=== PATIENT | male | born 1960 | race Caucasian/White ===

== ENCOUNTER 2023-07-14 13:49 | Emergency (ER) | payer OTHER ==
[~2023-07-14] VITALS: Ht 180.3 cm; Wt 158.8 kg
[2023-07-14 14:00] VITALS: BP_SYST 155; PULSE 88; RESP 20; TEMP 98.3; O2SAT 96
[2023-07-14] MEDS ORDERED: ASPIRIN 81 MG TAB.CHEW PO ONE (15:00)
[2023-07-14] MEDS ORDERED: IPRATROPIUM/ALBUTEROL SULFATE 3 ML AMPUL.NEB (DUONEB) ONE (15:22)
[2023-07-14 15:35] LABS: BASOPHILS % (AUTO) 0.9 % (0.0-2.0); EOSINOPHILS # (AUTO) 0.3 K/uL (0.0-0.4); EOSINOPHILS % (AUTO) 2.2 % (0.0-4.0); HEMATOCRIT 45.6 % (36-54); HEMOGLOBIN 15.3 g/dL (14.0-18.0); LYMPHOCYTES # (AUTO) 1.9 K/uL (1.0-5.5); MEAN CORPUSCULAR HEMOGLOBIN 31 pg (27-31); MEAN CORPUSCULAR HGB CONC 34 % (32-36); MEAN CORPUSCULAR VOLUME 92 fL (79.0-98.0); MONOCYTES # (AUTO) 1.1 K/uL (0.0-1.0); MONOCYTES % (AUTO) 8.6 % (1.7-9.3); NEUTROPHILS # (AUTO) 9.1 K/uL (1.8-7.7); NEUTROPHILS % (AUTO) 73.3 % (40.0-70.0); PLATELET COUNT (AUTO) 326 K/uL (130-430); RED BLOOD CELL COUNT(AUTO) 4.95 MIL/uL (4.2-6.2); RED CELL DISTRIBUTION WIDTH 15.2 % (9.0-15.0); WHITE BLOOD COUNT (AUTO) 12.4 K/uL (4.8-10.8)
[2023-07-14 15:36] LABS: ANION GAP 8 (5-15); CALCIUM 9.6 mg/dL (8.4-11.0); CARBON DIOXIDE 30 mmol/L (23-29); CHLORIDE 103 mmol/L (98-107); GFR AFRICAN AMERICAN 98 mL/min (>90); GLUCOSE 96 mg/dL (74-106); POTASSIUM 3.8 mmol/L (3.5-5.1); SODIUM SERUM 141 mmol/L (136-145); UREA NITROGEN, BLOOD 21 mg/dL (8-21)
[2023-07-14 15:37] LABS: GFR NON AFRICAN-AMERICAN 81 mL/min (>90)
[2023-07-14 16:02] LABS: BASOPHILS # (AUTO) 0.1 K/uL (0.0-0.2)
[2023-07-14 18:07] LABS: INFLUENZA TYPE A Negative (NEGATIVE); INFLUENZA TYPE B NEGATIVE (NEGATIVE)
[2023-07-14 20:30] VITALS: BP_SYST 153; PULSE 91; RESP 20; TEMP 98.6; O2SAT 90
== END 2023-07-14 20:30 | disposition home or self-care (01) ==
LOC: SED 13:49
DX: R06.02 Shortness of breath (principal); I51.7 Cardiomegaly; E11.9 Type 2 diabetes mellitus without complications; I10 Essential (primary) hypertension; Z68.42 Body mass index [BMI] 45.0-49.9, adult; Z79.899 Other long term (current) drug therapy; Z20.822 Contact with and (suspected) exposure to COVID-19
CPT/HCPCS: 36415; 71045; 80048; 83880; 84484; 85025; 85379; 93005; 94640; 99285

== ENCOUNTER 2023-07-30 23:02 | Inpatient (IN) | payer OTHER ==
[~2023-07-30] VITALS: Ht 165.1 cm; Wt 168.8 kg
[2023-07-30 23:10] VITALS: BP_SYST 144; PULSE 141; RESP 22; TEMP 97.8; O2SAT 90
[2023-07-30] MEDS ORDERED: IPRATROPIUM/ALBUTEROL SULFATE 3 ML AMPUL.NEB (DUONEB) ONE (23:33)
[2023-07-30] MEDS: IPRATROPIUM/ALBUTEROL SULFATE 3 ML AMPUL.NEB (DUONEB) INH ONE (23:57)
[2023-07-31] VITALS (13 sets, daily range): BP systolic 126–147; PULSE 72–88; RESP 14–26; TEMP 97.6–98.2; O2SAT 91–99
[2023-07-31 00:58] LABS: BASOPHILS # (AUTO) 0.1 K/uL (0.0-0.2); BASOPHILS % (AUTO) 0.7 % (0.0-2.0); EOSINOPHILS # (AUTO) 0.2 K/uL (0.0-0.4); EOSINOPHILS % (AUTO) 1.6 % (0.0-4.0); HEMOGLOBIN 15.1 g/dL (14.0-18.0); LYMPHOCYTES # (AUTO) 1.4 K/uL (1.0-5.5); LYMPHOCYTES % (AUTO) 11.8 % (20.5-51.5); MEAN CORPUSCULAR HEMOGLOBIN 30 pg (27-31); MEAN CORPUSCULAR HGB CONC 33 % (32-36); MEAN CORPUSCULAR VOLUME 92 fL (79.0-98.0); MONOCYTES # (AUTO) 0.9 K/uL (0.0-1.0); MONOCYTES % (AUTO) 8.2 % (1.7-9.3); NEUTROPHILS % (AUTO) 77.7 % (40.0-70.0); PLATELET COUNT (AUTO) 293 K/uL (130-430); RED CELL DISTRIBUTION WIDTH 15.1 % (9.0-15.0); WHITE BLOOD COUNT (AUTO) 11.5 K/uL (4.8-10.8)
[2023-07-31] MEDS ORDERED: SYN50 PO (01:00)
[2023-07-31] MEDS ORDERED: ATEN-168 PO (01:00)
[2023-07-31] MEDS ORDERED: CLON0.5T4 PO (01:00)
[2023-07-31] MEDS ORDERED: CETRIZINE PO (01:00)
[2023-07-31] MEDS ORDERED: METF-518 PO (01:00)
[2023-07-31] MEDS: FUROSEMIDE 40 MG/4 ML VIAL IVP ONE ×2 (01:00→13:46)
[2023-07-31] MEDS ORDERED: NOR10 PO (01:00)
[2023-07-31] MEDS ORDERED: SIMV-343 PO (01:00)
[2023-07-31] MEDS ORDERED: HYDR-4038 PO (01:00)
[2023-07-31] MEDS ORDERED: GLIP10TA21 PO (01:00)
[2023-07-31] MEDS ORDERED: POTA8TAB66 PO (01:00)
[2023-07-31] MEDS ORDERED: FLUT16SP16 NS (01:00)
[2023-07-31] MEDS ORDERED: SEMA0.258 SQ (01:00)
[2023-07-31] MEDS ORDERED: ASPI-1393 PO (01:00)
[2023-07-31] MEDS ORDERED: INSU100V11 SQ (01:00)
[2023-07-31] MEDS ORDERED: DAPA5TAB PO (01:00)
[2023-07-31] MEDS ORDERED: FURO-149 PO (01:00)
[2023-07-31] MEDS ORDERED: LOSA-413 PO (01:00)
[2023-07-31 01:04] LABS: ANION GAP 7 (5-15); CARBON DIOXIDE 30 mmol/L (23-29); CHLORIDE 102 mmol/L (98-107); CREATININE 1.02 mg/dL (0.55-1.30); GFR AFRICAN AMERICAN 96 mL/min (>90); GLUCOSE 267 mg/dL (74-106); POTASSIUM 3.7 mmol/L (3.5-5.1); SODIUM SERUM 139 mmol/L (136-145); UREA NITROGEN, BLOOD 21 mg/dL (8-21)
[2023-07-31 01:11] LABS: GFR NON AFRICAN-AMERICAN 79 mL/min (>90)
[2023-07-31 01:12] LABS: ALANINE AMINOTRANSFERASE 19 U/L (12-78); ALBUMIN 3.1 g/dL (3.4-4.8); ASPARTATE AMINOTRANSFERASE 12 U/L (10-37); BILIRUBIN,DIRECT 0.2 mg/dL (0.0-0.3); CREATINE KINASE, TOTAL 62 U/L (39-308); TOTAL BILIRUBIN 0.9 mg/dL (0.0-1.0); TOTAL PROTEIN, SERUM 7.7 g/dL (6.4-8.3)
[2023-07-31] MEDS: METOPROLOL TARTRATE 5 MG/5 ML VIAL IVP ONE (01:58)
[2023-07-31] MEDS: METOPROLOL TARTRATE 25 MG TABLET PO ONE ×2 (01:59→13:47)
[2023-07-31] MEDS ORDERED: GLIP10TA11 PO (07:16)
[2023-07-31] MEDS ORDERED: NALOXONE HCL 0.4 MG/ML AMP (NARCAN) IVP PRN (10:00)
[2023-07-31] MEDS ORDERED: HYDROcodone/ACETAMIN 10-325 MG TAB PO PRN (10:00)
[2023-07-31] MEDS ORDERED: HYDROcodone/ACETAMIN 5-325 MG TAB (NORCO/ VICODIN) PO PRN (10:00)
[2023-07-31] MEDS ORDERED: IPRATROPIUM BROM 0.5 MG/2.5 ML VIAL.NEB (ATROVENT) INH SCH (10:00)
[2023-07-31] MEDS ORDERED: DEXTROSE 50% JECT 50 ML DISP.SYRIN IVP PRN (10:00)
[2023-07-31] MEDS ORDERED: GLUCOSE (DEXTROSE) ORAL GEL -Adults PO PRN (10:00)
[2023-07-31] MEDS ORDERED: ONDANSETRON HCL 4 MG/2 ML VIAL IVP PRN (10:00)
[2023-07-31] MEDS ORDERED: ACETAMINOPHEN 325 MG TABLET PO PRN ×2 (10:00→10:15)
[2023-07-31] MEDS ORDERED: MORPHINE 2 MG/ML INJ. SYRINGE IVP PRN (10:00)
[2023-07-31] MEDS ORDERED: COMMUNICATION ORDER XX PRN (10:15)
[2023-07-31 11:03] LABS: BASOPHILS % (AUTO) 0.5 % (0.0-2.0); EOSINOPHILS # (AUTO) 0.3 K/uL (0.0-0.4); EOSINOPHILS % (AUTO) 2.7 % (0.0-4.0); HEMATOCRIT 46.8 % (36-54); HEMOGLOBIN 15.3 g/dL (14.0-18.0); LYMPHOCYTES # (AUTO) 1.4 K/uL (1.0-5.5); LYMPHOCYTES % (AUTO) 14.4 % (20.5-51.5); MEAN CORPUSCULAR HEMOGLOBIN 30 pg (27-31); MEAN CORPUSCULAR HGB CONC 33 % (32-36); MEAN CORPUSCULAR VOLUME 93 fL (79.0-98.0); MONOCYTES % (AUTO) 9.8 % (1.7-9.3); NEUTROPHILS # (AUTO) 7.1 K/uL (1.8-7.7); NEUTROPHILS % (AUTO) 72.6 % (40.0-70.0); PLATELET COUNT (AUTO) 267 K/uL (130-430); RED BLOOD CELL COUNT(AUTO) 5.03 MIL/uL (4.2-6.2); RED CELL DISTRIBUTION WIDTH 15.4 % (9.0-15.0); WHITE BLOOD COUNT (AUTO) 9.8 K/uL (4.8-10.8)
[2023-07-31 11:21] LABS: ALANINE AMINOTRANSFERASE 20 U/L (12-78); ALBUMIN 3.1 g/dL (3.4-4.8); ASPARTATE AMINOTRANSFERASE 10 U/L (10-37); CALCIUM 8.6 mg/dL (8.4-11.0); CARBON DIOXIDE 36 mmol/L (23-29); CHLORIDE 104 mmol/L (98-107); CREATININE 0.97 mg/dL (0.55-1.30); GFR AFRICAN AMERICAN 102 mL/min (>90); GLUCOSE 142 mg/dL (74-106); POTASSIUM 3.4 mmol/L (3.5-5.1); SODIUM SERUM 141 mmol/L (136-145); TOTAL BILIRUBIN 1.4 mg/dL (0.0-1.0); TOTAL PROTEIN, SERUM 7.8 g/dL (6.4-8.3); UREA NITROGEN, BLOOD 18 mg/dL (8-21)
[2023-07-31 11:23] LABS: ANION GAP < 3 (5-15); GFR NON AFRICAN-AMERICAN 84 mL/min (>90)
[2023-07-31 11:24] LABS: HEMOGLOBIN A1C 8.01 % (<5.7)
[2023-07-31] MEDS: IPRATROPIUM BROM 0.5 MG/2.5 ML VIAL.NEB (ATROVENT) INH SCH (12:00)
[2023-07-31] MEDS: LEVOTHYROXINE SODIUM 0.05 MG TABLET PO ONE (13:47)
[2023-07-31] MEDS: amLODIPine BESYLATE 10 MG TABLET PO ONE (13:47)
[2023-07-31] MEDS: ASPIRIN 81 MG TABLET(ECOTRIN) PO ONE (13:48)
[2023-07-31] MEDS: LOSARTAN POTASSIUM 50 MG TABLET (COZAAR) PO ONE (13:48)
[2023-07-31] MEDS: EMPAGLIFLOZIN 10 MG TABLET PO ONE (15:50)
[2023-07-31] MEDS ORDERED: POTA-195 PO (15:51)
[2023-07-31] MEDS: INSULIN REGULAR, HUMAN 100 UNITS/ML, 3 ML VIAL (humuLIN R) SUBCUT PRN (16:56)
[2023-07-31] MEDS: DILTIAZEM HCL 60 MG TABLET PO SCH (19:49)
[2023-07-31] MEDS: SIMVASTATIN 20 MG TABLET PO SCH (21:39)
[2023-07-31] MEDS: FUROSEMIDE 40 MG/4 ML VIAL IVP SCH (21:39)
[2023-07-31] MEDS: METOPROLOL TARTRATE 25 MG TABLET PO SCH (21:40)
[2023-08-01] VITALS (12 sets, daily range): BP systolic 108–132; PULSE 76–98; RESP 18–22; TEMP 97–99; O2SAT 95–100
[2023-08-01 05:40] LABS: BASOPHILS # (AUTO) 0.1 K/uL (0.0-0.2); BASOPHILS % (AUTO) 0.6 % (0.0-2.0); EOSINOPHILS # (AUTO) 0.4 K/uL (0.0-0.4); HEMATOCRIT 47.4 % (36-54); HEMOGLOBIN 15.6 g/dL (14.0-18.0); LYMPHOCYTES # (AUTO) 1.5 K/uL (1.0-5.5); MEAN CORPUSCULAR HEMOGLOBIN 30 pg (27-31); MEAN CORPUSCULAR HGB CONC 33 % (32-36); MEAN CORPUSCULAR VOLUME 92 fL (79.0-98.0); MONOCYTES # (AUTO) 0.9 K/uL (0.0-1.0); NEUTROPHILS # (AUTO) 8.4 K/uL (1.8-7.7); NEUTROPHILS % (AUTO) 74.4 % (40.0-70.0); PLATELET COUNT (AUTO) 294 K/uL (130-430); RED BLOOD CELL COUNT(AUTO) 5.13 MIL/uL (4.2-6.2); RED CELL DISTRIBUTION WIDTH 15.1 % (9.0-15.0); WHITE BLOOD COUNT (AUTO) 11.3 K/uL (4.8-10.8)
[2023-08-01 06:23] LABS: ALBUMIN 3.3 g/dL (3.4-4.8); CALCIUM 8.8 mg/dL (8.4-11.0); CREATININE 0.83 mg/dL (0.55-1.30); PHOSPHORUS 3.2 mg/dL (2.7-4.5); POTASSIUM 3.5 mmol/L (3.5-5.1); TOTAL BILIRUBIN 1.6 mg/dL (0.0-1.0); TOTAL PROTEIN, SERUM 8.1 g/dL (6.4-8.3)
[2023-08-01] MEDS: LEVOTHYROXINE SODIUM 0.05 MG TABLET PO SCH (06:43)
[2023-08-01] MEDS: amLODIPine BESYLATE 10 MG TABLET PO SCH (08:29)
[2023-08-01] MEDS: LOSARTAN POTASSIUM 50 MG TABLET (COZAAR) PO SCH (08:30)
[2023-08-01] MEDS: ASPIRIN 81 MG TABLET(ECOTRIN) PO SCH (08:30)
[2023-08-01] MEDS: EMPAGLIFLOZIN 10 MG TABLET PO SCH (08:31)
[2023-08-01] MEDS: VERAPAMIL HCL 80 MG TABLET PO ONE (16:14)
[2023-08-01] MEDS: FUROSEMIDE 40 MG/4 ML VIAL IVP SCH (18:15)
[2023-08-01] MEDS: INSULIN GLARGINE 100 UNITS/ML, 10 ML VIAL SUBCUT SCH (21:00)
[2023-08-01] MEDS: VERAPAMIL HCL 80 MG TABLET PO SCH (21:16)
[2023-08-02] VITALS (7 sets, daily range): BP systolic 118–147; PULSE 75–96; RESP 16–17; TEMP 96.9–98.4; O2SAT 87–99
[2023-08-02 06:53] LABS: BASOPHILS # (AUTO) 0.1 K/uL (0.0-0.2); BASOPHILS % (AUTO) 0.5 % (0.0-2.0); EOSINOPHILS # (AUTO) 0.5 K/uL (0.0-0.4); HEMATOCRIT 47.6 % (36-54); HEMOGLOBIN 15.7 g/dL (14.0-18.0); MEAN CORPUSCULAR HEMOGLOBIN 30 pg (27-31); MEAN CORPUSCULAR HGB CONC 33 % (32-36); MEAN CORPUSCULAR VOLUME 91 fL (79.0-98.0); MONOCYTES # (AUTO) 0.9 K/uL (0.0-1.0); MONOCYTES % (AUTO) 7.4 % (1.7-9.3); NEUTROPHILS # (AUTO) 9.7 K/uL (1.8-7.7); NEUTROPHILS % (AUTO) 80.1 % (40.0-70.0); PLATELET COUNT (AUTO) 279 K/uL (130-430); RED BLOOD CELL COUNT(AUTO) 5.21 MIL/uL (4.2-6.2); RED CELL DISTRIBUTION WIDTH 14.9 % (9.0-15.0); WHITE BLOOD COUNT (AUTO) 12.2 K/uL (4.8-10.8)
[2023-08-02 07:20] LABS: ALBUMIN 3.2 g/dL (3.4-4.8); CALCIUM 9.1 mg/dL (8.4-11.0); CREATININE 0.75 mg/dL (0.55-1.30); POTASSIUM 3.5 mmol/L (3.5-5.1); TOTAL BILIRUBIN 2.1 mg/dL (0.0-1.0)
[2023-08-02] MEDS: ATENOLOL 50 MG TABLET (TENORMIN) PO SCH (09:09)
[2023-08-02] MEDS ORDERED: APIXABAN 2.5 MG TABLET PO ONE (12:00)
[2023-08-02] MEDS ORDERED: [UNRECOGNIZED DRUG - CODE] PO (12:39)
[2023-08-02] MEDS ORDERED: APIX2.5T PO (12:39)
[2023-08-02] MEDS ORDERED: APIXABAN 2.5 MG TABLET PO SCH (21:00)
[2023-08-03] MEDS ORDERED: FUROSEMIDE 40 MG TABLET PO SCH (09:00)
[2023-08-03] MEDS ORDERED: POTASSIUM CHLORIDE 20 MEQ/PKT PACKET PO SCH (09:00)
[2023-08-03] MEDS ORDERED: VERAPAMIL HCL 120 MG TABLET.SA PO SCH (09:00)
== END 2023-08-02 14:24 | disposition home or self-care (01) | DRG 291 ==
LOC: SED 23:02 → SIC 07-31 02:51 → STU 07-31 23:00
PROVIDERS: ADMIT Family Medicine; ATTEND Family Medicine
DX: I11.0 Hypertensive heart disease with heart failure (principal); I50.33 Acute on chronic diastolic (congestive) heart failure; E44.1 Mild protein-calorie malnutrition; Z68.44 Body mass index [BMI] 60.0-69.9, adult; I48.91 Unspecified atrial fibrillation; E78.5 Hyperlipidemia, unspecified; E11.65 Type 2 diabetes mellitus with hyperglycemia; E66.01 Morbid (severe) obesity due to excess calories; E03.9 Hypothyroidism, unspecified; Z79.899 Other long term (current) drug therapy
CPT/HCPCS: 36415; 71045; 80048; 80053; 80076; 82550; 82948; 83037; 83735; 83880; 84100; 84484; 85025; 85379; 87070; 87075; 87081; 87186; 93005; 93306; 94640; 94760; 99291; G0378; J1815; J1940; J3490; J7060

== ENCOUNTER 2023-10-06 06:06 | Emergency (ER) | payer OTHER ==
[~2023-10-06] VITALS: Ht 175.3 cm; Wt 145.1 kg
[~2023-10-06 06:06] MED LIST: APIX2.5T PO; ATEN-168 PO; DAPA5TAB PO; FLUT16SP16 NS; FURO-149 PO; GLIP10TA11 PO; INSU100V11 SQ; LOSA-413 PO; METF-518 PO; POTA-195 PO; SEMA0.258 SQ; SIMV-343 PO; SYN50 PO; [UNRECOGNIZED DRUG - CODE] PO
[2023-10-06 06:13] VITALS: BP_SYST 134; PULSE 107; RESP 20; TEMP 98; O2SAT 93
[2023-10-06 06:46] LABS: BASOPHILS # (AUTO) 0.1 K/uL (0.0-0.2); BASOPHILS % (AUTO) 0.5 % (0.0-2.0); EOSINOPHILS # (AUTO) 0.2 K/uL (0.0-0.4); EOSINOPHILS % (AUTO) 1.4 % (0.0-4.0); HEMATOCRIT 48.2 % (36-54); HEMOGLOBIN 16.3 g/dL (14.0-18.0); LYMPHOCYTES # (AUTO) 1.6 K/uL (1.0-5.5); LYMPHOCYTES % (AUTO) 10.8 % (20.5-51.5); MEAN CORPUSCULAR HEMOGLOBIN 30 pg (27-31); MEAN CORPUSCULAR HGB CONC 34 % (32-36); MEAN CORPUSCULAR VOLUME 90 fL (79.0-98.0); MONOCYTES # (AUTO) 1.1 K/uL (0.0-1.0); MONOCYTES % (AUTO) 7.6 % (1.7-9.3); NEUTROPHILS # (AUTO) 11.6 K/uL (1.8-7.7); NEUTROPHILS % (AUTO) 79.7 % (40.0-70.0); PLATELET COUNT (AUTO) 319 K/uL (130-430); RED BLOOD CELL COUNT(AUTO) 5.37 MIL/uL (4.2-6.2); WHITE BLOOD COUNT (AUTO) 14.5 K/uL (4.8-10.8)
[2023-10-06 07:00] LABS: ANION GAP 5 (5-15); CALCIUM 8.8 mg/dL (8.4-11.0); CARBON DIOXIDE 33 mmol/L (23-29); CHLORIDE 101 mmol/L (98-107); CREATININE 1.01 mg/dL (0.55-1.30); GFR AFRICAN AMERICAN 97 mL/min (>90); GLUCOSE 188 mg/dL (74-106); POTASSIUM 3.1 mmol/L (3.5-5.1); SODIUM SERUM 139 mmol/L (136-145); UREA NITROGEN, BLOOD 15 mg/dL (8-21)
[2023-10-06 07:06] LABS: GFR NON AFRICAN-AMERICAN 80 mL/min (>90)
[2023-10-06 07:07] LABS: ALANINE AMINOTRANSFERASE 21 U/L (12-78); ASPARTATE AMINOTRANSFERASE 11 U/L (10-37); BILIRUBIN,DIRECT 0.2 mg/dL (0.0-0.3); TOTAL BILIRUBIN 0.7 mg/dL (0.0-1.0); TOTAL PROTEIN, SERUM 7.6 g/dL (6.4-8.3)
[2023-10-06] MEDS: POTASSIUM CHLORIDE 20 MEQ TABLET.ER PO ONE (08:24)
[2023-10-06] MEDS: FUROSEMIDE 40 MG/4 ML VIAL IVP ONE (08:24)
[2023-10-06] MEDS ORDERED: AUG875 PO (09:11)
[2023-10-06 09:29] VITALS: BP_SYST 136; PULSE 63; RESP 16; TEMP 98.7; O2SAT 97
== END 2023-10-06 09:29 | disposition home or self-care (01) ==
LOC: SED 06:06
DX: I11.0 Hypertensive heart disease with heart failure (principal); I50.9 Heart failure, unspecified; I48.91 Unspecified atrial fibrillation; E87.6 Hypokalemia; L03.115 Cellulitis of right lower limb; E11.9 Type 2 diabetes mellitus without complications; J44.9 Chronic obstructive pulmonary disease, unspecified
CPT/HCPCS: 36415; 71045; 80048; 80076; 83880; 84484; 85025; 85610; 85651; 85730; 93005; 96374; 99285; J1940